=== PATIENT | female | born 1970 | race Hispanic/Latino ===

== ENCOUNTER 2019-03-30 02:45 | Inpatient (IN) | payer BC ==
[2019-03-30] MEDS ORDERED: Piperacillin/Tazobactam 4.5 GM VIAL ONE (03:00)
[2019-03-30] MEDS ORDERED: Sodium Chloride 0.9% 100 ML ONE (03:00)
[2019-03-30] MEDS ORDERED: Morphine 4 MG/ML VIAL ONE (03:15)
[2019-03-30] MEDS ORDERED: Acetaminophen 500 MG TAB ONE (03:15)
[2019-03-30] MEDS ORDERED: Ondansetron PF 4 MG/2 ML Vial ONE ×2 (03:15→10:23)
[2019-03-30 03:24] LABS: BHCG - Serum Negative (NEGATIVE); PTT 28.5 SEC (22.9-36.1); Pregs Control Background? CLEAR/WHITE (CLR/WHITE); Pregs Control Bar Appear? YES (CONTROL BAR); Prothrombin Time 12.8 SEC (12.0-14.7)
[2019-03-30 03:26] LABS: Hemoglobin 14.2 g/dL (12.0-16.0); Mean Corpuscular HGB CONC 34.4 g/dL (32.0-36.0); Mean Corpuscular Volume 87.1 fL (78.0-98.0); Mean Platelet Volume 8.4 fL (7.4-10.4); Platelet Count 177 thou/uL (130-400); RBC Distribution Width 12.6 % (11.5-14.5); Red Blood Cell (RBC) Count 4.73 mill/uL (4.20-5.40); White Blood Cell (WBC) Count 17.4 thou/uL (4.8-10.8)
[2019-03-30 03:38] LABS: Band 9 % (5-11); Eosinophils 1 % (0-10); Lymphocytes 5 % (21-51); MDiff Complete? YES; Metamyelocyte 1 % (0-0); Monocytes 7 % (0-10); Neutrophil 77 % (42-75); Platelet Morphology Comment Appears Adequate
[2019-03-30 03:39] LABS: ALT (SGPT) 351 U/L (8-55); AST (SGOT) 202 U/L (5-34); Albumin 4.2 g/dL (3.5-5.0); Alkaline Phosphatase 346 U/L (40-110); Anion Gap 15 mmol/L (10-20); BUN (Urea Nitrogen) 7 mg/dL (7.0-18.7); Bilirubin, Total 6.1 mg/dL (0.2-1.2); Calc. Creatinine Clearance 0 mL/min (70-130); Calcium 9.1 mg/dL (7.8-10.44); Carbon Dioxide 24 mmol/L (22-29); Chloride 102 mmol/L (98-107); Estimated GFR-MDRD Greater than 90; Globulin 4.4 g/dL (2.4-3.5); Glucose 138 mg/dL (70-105); Lipase 6 U/L (8-78); Potassium 4.3 mmol/L (3.5-5.1); Protein, Total 8.6 g/dL (6.0-8.3); Sodium 137 mmol/L (136-145)
[2019-03-30 04:29] LABS: Bacteria/HPF 1+ HPF (None Seen); Bilirubin Negative (Negative); Blood, Urine 1+ (Negative); Clarity Clear (Clear); Glucose, Urine (Dipstick) Normal (Negative); Leukocyte 250 Leu/uL (Negative); Nitrite Negative (Negative); Protein, Urine (Dipstick) Negative (Neg-Trace); Squamous Epithelial 0-3 HPF (0-3); Urobilinogen Normal mg/dL (Less than 2)
[2019-03-30] MEDS ORDERED: Senokot S 8.6-50 MG TAB PO PRN (07:52)
[2019-03-30] MEDS ORDERED: Sodium Chloride 0.9% 1,000 ML IV SCH (08:00)
[2019-03-30] MEDS ORDERED: Morphine 2 MG/ML SYRINGE SLOW IVP PRN (08:01)
[2019-03-30] MEDS ORDERED: Sodium Chloride 0.9% 10 ML ONE (08:18)
[2019-03-30] MEDS: Heparin 5,000 UNITS/ML VIAL SC SCH ×3 (08:20→21:06)
--- NOTE | 2019-03-30 08:23 | ULT ---
PRELIMINARY REPORT/[facility]/EMERGENCY AFTER HOURS PROCEDURE Receipt of this report by the clinical staff was confirmed with SILVESTRE LEPE MD by Wojciech Barry on Mar 30, 2019 03:56:00 RECREATION COORDINATOR. Addendum electronically signed by Bianca Barry on March 30, 2019 3:57:37 AM RECREATION COORDINATOR EXAM: US Abdomen Limited, Right Upper Quadrant. CLINICAL HISTORY: HX: ABD PAIN, N/V, FEVER, HX OF GALLSTONES. TECHNIQUE: Real-time ultrasound of the right upper quadrant with image documentation. COMPARISON: None provided. FINDINGS: LIVER: Unremarkable. GALLBLADDER: Cholelithiasis is noted with wall thickening at 4.4 mm. No pericholecystic fluid. The p atient demonstrated a positive sonographic Painting's sign COMMON BILE DUCT: Appears dilated at 8.6 mm with suspected distal calculus and intrahepatic biliary d uctal dilatation is identified PANCREAS: Unremarkable as visualized. The distal pancreas is obscured by overlying bowel gas. RIGHT KIDNEY: Unremarkable. No hydronephrosis. Measures 11.8 cm IMPRESSION: The findings are consistent with acute cholecystitis with suspected distal choledocholithiasis ELECTRONICALLY SIGNED BY: Guzman Dill MD Mar 30, 2019 3:53:02 AM RECREATION COORDINATOR FINAL REPORT EMERGENT AFTER HOURS RIGHT UPPER QUADRANT ABDOMINAL ULTRASOUND: FINDINGS/IMPRESSION: I agree with the findings and impression given in the preliminary report per [facility] physici an. 1. There is cholelithiasis with findings suggesting acute cholecystitis. 2. There is enlargement of the common bile duct with a possible stone in the distal common bile duct . POS: [facility]
[2019-03-30] MEDS ORDERED: Loratadine 10 MG TAB PO PRN (08:54)
[2019-03-30] MEDS ORDERED: Sodium Chloride Nasal 15 GM TUBE EA NARE PRN (08:54)
--- NOTE | 2019-03-30 08:55 | PDOC.HHP ---
Hospitalist HPI - History of Present Illness Abdominal pain History of Present Illness: 49 yo female with no PMH presented to ER due to abdominal pain. She had presented to [facility] on 03/27/19 due to abdominal pain and was found to have gall stones. She was sent home. She states that she continued to have abdominal pain. She rates it as 9/10 pain in her right upper abdomen that is a pressure like sensation. The pain radiates to her back. No relation to food intake. Currently, the pain is 3/10 after receiving pain medications. Reports nausea and vomiting 2 days ago. Denies diarrhea, constipation. Reports fevers and chills, lightheadedness with activity. No chest pain, shortness of breath, palpitations, headache, cough, wheezing. No burning or pain with urination. She reports dark urine over the past few days. Denies blood in urine or stool. Denies swelling, rash. No recent travel history or sick contacts. Hospitalist ROS - Review of Systems All other systems reviewed; all pertinent +/- noted in HPI/Subj - Medication Medications: Active Medications Generic Name Dose Route Start Last Admin Trade Name Freq PRN Reason Stop Dose Admin Heparin Sodium (Porcine) 5,000 units 03/30/19 09:00 03/30/19 08:20 Heparin SC 5,000 units TID DEVAN Administration Sodium Chloride 1,000 mls @ 999 mls/hr 03/30/19 08:00 03/30/19 08:11 Normal Saline 0.9% IV 03/30/19 09:00 1,000 mls .Q1H1M DEVAN Administration Hospitalist History - Past Medical History Source: patient, family Cardiac: reports: no pertinent history Pulmonary: reports: no pertinent history Gastrointestinal: reports: no pertinent history Heme/Onc: reports: no pertinent history Hepatobiliary: reports: no pertinent history Psych: reports: no pertinent history Musculoskeletal: reports: no pertinent history Rheumatologic: reports: no pertinent history Infectious Disease: reports: no pertinent history ENT: reports: no pertinent history Renal/: reports: no pertinent history Endocrine: reports: no pertinent history Dermatology: reports: no pertinent history - Past Surgical History Past Surgical History: reports: no pertinent history Other Surgical History: No surgeries - Family History Family History: reports: diabetes mellitus (brother) - Social History Smoking Status: Never smoker Alcohol: reports: None Drugs: reports: none Living Situation: With Family Activity level: independent ambulation - Exam General Appearance: awake alert, ill appearing Eye: PERRL, scleral icterus ENT: normocephalic atraumatic, no oropharyngeal lesions, dry oral mucosa Neck: supple, symmetric, no JVD, no thyromegaly, no lymphadenopathy Heart: no murmur, no gallops, no rubs, normal peripheral pulses Heart - other findings: tachycardia Respiratory: CTAB, no wheezes, no rales, no ronchi, normal chest expansion, no tachypnea Respiratory - other findings: Not using accessory muscles of respiration Gastrointestinal: soft, non-distended, normal bowel sounds, no palpable masses, no guarding, no rigidity, tender to palpation (right upper quadrant) Extremities: no cyanosis, no clubbing, no edema Skin: normal turgor, no lesions, no rashes Neurological: cranial nerve grossly intact, normal sensation to touch, no focal deficits Musculoskeletal: normal tone, normal strength, no muscle wasting Psychiatric: normal affect, normal behavior, A&O x 3 Hospitalist Results - Labs Result Diagrams: 03/30/19 03:01 03/30/19 03:01 Lab results: WBC 17.4 thou/uL (4.8-10.8) H 03/30/19 03:01 Hgb 14.2 g/dL (12.0-16.0) 03/30/19 03:01 Hct 41.2 % (36.0-47.0) 03/30/19 03:01 MCV 87.1 fL (78.0-98.0) 03/30/19 03:01 Plt Count 177 thou/uL (130-400) 03/30/19 03:01 Band Neuts % (Manual) 9 % (5-11) 03/30/19 03:01 Sodium 137 mmol/L (136-145) 03/30/19 03:01 Potassium 4.3 mmol/L (3.5-5.1) 03/30/19 03:01 Chloride 102 mmol/L (98-107) 03/30/19 03:01 Carbon Dioxide 24 mmol/L (22-29) 03/30/19 03:01 BUN 7 mg/dL (7.0-18.7) 03/30/19 03:01 Creatinine 0.68 mg/dL (0.6-1.1) 03/30/19 03:01 Glucose 138 mg/dL (70-105) H 03/30/19 03:01 Lactic Acid 1.1 mmol/L (0.5-2.2) 03/30/19 03:01 Calcium 9.1 mg/dL (7.8-10.44) 03/30/19 03:01 Total Bilirubin 6.1 mg/dL (0.2-1.2) H 03/30/19 03:01 AST 202 U/L (5-34) H 03/30/19 03:01 ALT 351 U/L (8-55) H 03/30/19 03:01 Alkaline Phosphatase 346 U/L (40-110) H 03/30/19 03:01 Serum Total Protein 8.6 g/dL (6.0-8.3) H 03/30/19 03:01 Albumin 4.2 g/dL (3.5-5.0) 03/30/19 03:01 Lipase 6 U/L (8-78) L 03/30/19 03:01 Urine Ketones 10 mg/dL (Negative) A 03/30/19 04:05 Urine Blood 1+ (Negative) A 03/30/19 04:05 Urine Nitrite Negative (Negative) 03/30/19 04:05 Ur Leukocyte Esterase 250 Ann/uL (Negative) A 03/30/19 04:05 Urine RBC 7-10 HPF (0-3) A 03/30/19 04:05 Urine WBC 7-10 HPF (0-3) A 03/30/19 04:05 Ur Squamous Epith Cells 0-3 HPF (0-3) 03/30/19 04:05 Urine Bacteria 1+ HPF (None Seen) A 03/30/19 04:05 - EKG Interpretation EKG: Personally reviewed - Sinus tachycardia; T-inversions in lead III - Radiology Interpretation US - abdomen Status: report reviewed by me (Acute cholecystitis and possible choledocholithiasis) Hospitalist H&P A/P - Problem (1) Cholecystitis Code(s): K81.9 - CHOLECYSTITIS, UNSPECIFIED Status: Acute Assessment and Plan: Admit to inpatient status High risk due to need for IV abx and IVF and need for inpatient surgical intervention Expected to stay at least 2 midnights Case DW surgery who recommended GI consult and ERCP GI consulted Will await further recommendations from GI IV antibiotics with rocephin and IVF Pain control Eventual cholecystectomy (2) Sepsis Code(s): A41.9 - SEPSIS, UNSPECIFIED ORGANISM Status: Acute Qualifiers: Sepsis type: sepsis due to unspecified organism Sepsis acute organ dysfunction status: without acute organ dysfunction Qualified Code(s): A41.9 - Sepsis, unspecified organism Assessment and Plan: Has bandemia with 9% bands, leukocytosis and tachycardia Due to cholecystitis Mgmt. as above IV fluid bolus now and IVF drip (3) Hyperbilirubinemia Code(s): E80.6 - OTHER DISORDERS OF BILIRUBIN METABOLISM Status: Acute Assessment and Plan: Likely due to choledocholithiasis Likely needs ERCP MRCP ordered to evaluate for CBD stone IV fluids Trend bilirubin levels - Plan Plan: CODE STATUS - FULL CODE
--- NOTE | 2019-03-30 09:37 | CON ---
DATE OF CONSULTATION: 03/30/2019 CHIEF COMPLAINT: Possible cholangitis. HISTORY OF PRESENT ILLNESS: This is a 49-year-old female, who presents with a history of pain in the right upper abdomen associated with fever. She presented very tachycardic last night. She notes temperatures up to 101 and 102 at home. She has been afebrile here, seen in emergency department by Dr. Noble where ultrasound reveals evidence of gallstones, dilated common bile duct, likely choledocholithiasis. Her bilirubin was found to be elevated at 6.1. She denies known previous history of gallstones. She has never had jaundice or pancreatitis. MEDICAL HISTORY: Negative. SURGICAL HISTORY: Negative. MEDICATIONS: Medicines taken daily none. ALLERGIES: NO KNOWN DRUG ALLERGIES. SOCIAL HISTORY: No smoking, alcohol, or other drugs. REVIEW OF SYSTEMS: Ten-system review of systems is otherwise negative unless described above. PHYSICAL EXAMINATION: VITAL SIGNS: Pulse is 107 down from 129 last night in the emergency room. Temperature 98.8 down from 101 in the emergency room last night, O2 saturation 94% on room air, blood pressure 125/67. HEENT: Sclerae icteric. Oropharynx clear. NECK: No lymphadenopathy. CHEST: Clear. HEART: Increased rate, regular rhythm without murmur. ABDOMEN: Soft. She is tender in the right upper quadrant. No guarding or rebound. No abdominal or inguinal hernias. EXTREMITIES: No ischemia or edema to extremities. LABORATORY DATA: White blood cell count is 17, hemoglobin 14, platelet count is 177. She has 77 neutrophils and 9 bands. Sodium 137, potassium 4.3, creatinine 0.68, bilirubin 6.1. AST, ALT, alkaline phosphatase are all elevated. Lipase is 66. Ultrasound, common bile duct is dilated at 8.6 mm. She does have gallstones, gallbladder wall thickening. ASSESSMENT: Acute cholecystitis with acute choledocholithiasis plus or minus cholangitis. PLAN: I think she needs ERCP. Gallbladder cholecystectomy can follow within the next 24 to 48 hours. We will discuss with Dr. Sanchez. Based on her clinical presentation, I do not think MRCP is going to be helpful. Job ID: [id number]
[2019-03-30] MEDS: Sodium Chloride 0.9% 1,000 ML IV SCH ×2 (09:50→21:06)
[2019-03-30] MEDS: cefTRIAXone\\ROCEPHIN 2 GM in Sodium Chloride 0.9% 100 ML IVPB SCH (10:09)
[2019-03-30] MEDS ORDERED: PROPOFOL 200 MG/20 ML VIAL ONE (10:23)
[2019-03-30] MEDS ORDERED: Rocuronium Bromide 10 MG/ML (10ML VIAL) ONE (10:23)
[2019-03-30] MEDS ORDERED: Lidocaine 1% PF 5 ML VIAL ONE (10:23)
[2019-03-30] MEDS ORDERED: Dexamethasone 20 MG/5 ML VIAL ONE (10:23)
[2019-03-30] MEDS ORDERED: PHENYLEPHRINE-NS 100 MCG/ML 10 ML SYRINGE ONE (10:23)
[2019-03-30] MEDS ORDERED: Midazolam HCl 2 mg/2 ml Vial ONE (13:14)
[2019-03-30] MEDS ORDERED: Iothalamate Meglumine 60% 50 ML VIAL FS ONE (13:14)
[2019-03-30] MEDS ORDERED: Indomethacin 50 MG SUPP ONE (13:14)
[2019-03-30] MEDS ORDERED: Fentanyl 100 MCG/2 ML VIAL ONE (13:14)
[2019-03-30] MEDS ORDERED: Promethazine HCl 25 MG/ML VIAL SLOW IVP PRN (14:06)
[2019-03-30] MEDS ORDERED: PACU-Morphine 4MG/ML VIAL SLOW IVP PRN (14:06)
[2019-03-30] MEDS ORDERED: Ondansetron HCl/PF 4 MG/2 ML Vial IVP PRN (14:06)
[2019-03-30] MEDS ORDERED: Promethazine HCl 25 MG/ML VIAL IM PRN (14:06)
[2019-03-30] MEDS ORDERED: HYDROmorphone 2 MG/ML VIAL SLOW IVP PRN (14:06)
--- NOTE | 2019-03-30 22:05 | OP ---
DATE OF PROCEDURE: 03/30/2019 OPERATIVE PROCEDURE: Endoscopic retrograde cholangiopancreatography. PREOPERATIVE DIAGNOSES: Abdominal pain, abnormal LFTs and possible choledocholithiasis. POSTOPERATIVE DIAGNOSES: 1. Unable to cannulate the pancreatic duct, unable to cannulate the bile duct. 2. Normal pancreatic duct. 3. Only less than 1.5 mL of contrast injected during this procedure. DESCRIPTION OF PROCEDURE: The patient was placed on her back and was intubated by the Anesthesia Department. The patient was transferred to the fluoroscopy table after she was given sedation. The patient was turned on her left lateral position and then placed on her stomach. A bite block was placed. A [employer] video duodenoscope under direct vision passed down the oropharynx past the GE junction into the stomach and rapidly into the descending duodenum. The papilla was identified. The scope was 60 cm and was straight in line and good ideal position for cannulation. The papilla was cannulated over a guidewire without any difficulty. Upon doing fluoroscopy, it was actually in the pancreatic duct. The papillotome was removed. Numerous attempts were made by changing the position and also trying to rotate the scope. Every time it was easy to cannulate the papillotome over a guidewire. But however every time the guide was advancing, it was going back into the pancreatic duct. 1.5 mL of contrast was injected, which showed normal pancreatic duct. This was repeated several times and I did not inject any more dye except the fluoroscopy was used also to guide the direction of the papillotome. Following numerous attempts and also trying to use tapered tip cannula, I could not really cannulate the common bile duct. The procedure was terminated. The stomach decompressed and the scope removed. RECOMMENDATIONS: 1. Clear liquid diet. 2. Follow up LFTs. 3. May need to consider repeat ERCP. Job ID: [id number]
[2019-03-31] MEDS: Sodium Chloride 0.9% 1,000 ML IV SCH (04:59)
[2019-03-31 06:27] LABS: #Basophils 0.1 thou/uL (0.0-0.2); #Lymphocytes 1.1 thou/uL (1.20-3.40); #Monocytes 0.6 thou/uL (0.11-0.59); #Neutrophils 7.3 thou/uL (1.40-6.50); %Basophils 0.6 % (0.0-1.0); %Eosinophils 0.1 % (0.0-10.0); %Monocytes 6.1 % (0.0-10.0); %Neutrophils 81.2 % (42.0-75.0); Hemoglobin 12.2 g/dL (12.0-16.0); Mean Corpuscular HGB CONC 34.2 g/dL (32.0-36.0); Mean Corpuscular Hemoglobin 30.1 pg (27.0-31.0); Mean Corpuscular Volume 87.9 fL (78.0-98.0); Mean Platelet Volume 8.4 fL (7.4-10.4); Platelet Count 140 thou/uL (130-400); RBC Distribution Width 12.5 % (11.5-14.5); Red Blood Cell (RBC) Count 4.07 mill/uL (4.20-5.40)
[2019-03-31 06:47] LABS: ALT (SGPT) 230 U/L (8-55); AST (SGOT) 92 U/L (5-34); Albumin 3.2 g/dL (3.5-5.0); Alkaline Phosphatase 262 U/L (40-110); Anion Gap 12 mmol/L (10-20); BUN (Urea Nitrogen) 7 mg/dL (7.0-18.7); Calc. Creatinine Clearance 154 mL/min (70-130); Calcium 8.1 mg/dL (7.8-10.44); Carbon Dioxide 22 mmol/L (22-29); Chloride 110 mmol/L (98-107); Estimated GFR-MDRD Greater than 90; Globulin 3.5 g/dL (2.4-3.5); Glucose 134 mg/dL (70-105); Potassium 3.7 mmol/L (3.5-5.1); Protein, Total 6.7 g/dL (6.0-8.3); Sodium 140 mmol/L (136-145)
[2019-03-31 06:48] LABS: ALT (SGPT) 231 U/L (8-55); AST (SGOT) 92 U/L (5-34); Albumin 3.3 g/dL (3.5-5.0); Alkaline Phosphatase 263 U/L (40-110); Bilirubin, Direct 3.3 mg/dL (0.1-0.3); Protein, Total 6.6 g/dL (6.0-8.3)
[2019-03-31 07:00] LABS: Lipase 2035 U/L (8-78)
[2019-03-31] MEDS: cefTRIAXone\\ROCEPHIN 2 GM in Sodium Chloride 0.9% 100 ML IVPB SCH (08:37)
[2019-03-31] MEDS: Heparin 5,000 UNITS/ML VIAL SC SCH ×3 (08:37→22:04)
[2019-03-31] MEDS: 1/2 NS w/KCL 20 mEq 1,000 ML IV SCH ×4 (08:38→22:04)
--- NOTE | 2019-03-31 10:09 | PRG ---
DATE OF SERVICE: 03/31/2019 SUBJECTIVE: This is a 49-year-old female hospitalized yesterday morning with abdominal pain, nausea with fever to 102 and also abnormal LFTs. The clinical picture was suggestive of possible cholangitis. She has gallstone in the gallbladder and also has a dilated CBD. She underwent ERCP yesterday, but unfortunately the common bile duct could not be cannulated. She had done well overnight. She has very minimal abdominal discomfort. No nausea. No vomiting. She remains afebrile. She offers no complaints. OBJECTIVE: VITAL SIGNS: Afebrile, pulse is 84, and blood pressure 124/63. HEENT: She is icteric. CARDIOVASCULAR SYSTEM: Within normal limits. LUNGS: Within normal limits. ABDOMEN: Soft. She is very mildly tender over the right upper quadrant. Overall, the exam is very benign. LABORATORY DATA: Remained unchanged, especially liver function tests. The bilirubin is 4, AST 92, ALT 231, and alkaline phosphatase 263. Lytes are normal. , probably asymptomatic elevation. RECOMMENDATIONS: 1. Advance diet to full liquid diet. 2. Repeat ERCP tomorrow. The patient's family was informed of the plan of treatment, which includes a repeat ERCP tomorrow and possibly laparoscopic cholecystectomy at a later today. Job ID: [id number]
[2019-03-31] MEDS: Acetaminophen 325 MG TAB PO PRN ×3 (13:29→23:03)
--- NOTE | 2019-03-31 13:43 | PDOC.HOSPP ---
- Subjective Encounter Date: 03/31/19 Encounter Time: 13:42 Subjective: ERCP yesterday was unsuccessful. Patient reports feeling better today with an abdominal pain of 3/10 in the right upper abdomen. No N/V. No fever, chills, SOB , CP. - Objective Vital Signs & Weight: Vital Signs (12 hours) Temp Pulse Resp BP Pulse Ox 03/31/19 11:40 97.9 F 85 12 126/61 96 03/31/19 08:01 98.5 F 84 12 124/65 93 L 03/31/19 04:00 97.9 F 81 18 115/67 95 03/31/19 03:50 95 Weight Weight 175 lb 15.92 oz I&O: 03/30/19 03/31/19 04/01/19 06:59 06:59 06:59 Intake Total 2980 Balance 2980 Result Diagrams: 03/31/19 06:15 03/31/19 06:15 Hospitalist ROS - Medication Medications: Active Medications Generic Name Dose Route Start Last Admin Trade Name Freq PRN Reason Stop Dose Admin Acetaminophen 650 mg 03/30/19 07:52 03/31/19 13:29 Tylenol PO 650 mg Q4H PRN Administration Headache/Fever/Mild Pain (1-3) Heparin Sodium (Porcine) 5,000 units 03/30/19 09:00 03/31/19 08:37 Heparin SC 5,000 units TID DEVAN Administration Ceftriaxone Sodium 2 gm/ 100 mls @ 200 mls/hr 03/30/19 08:00 03/31/19 08:37 Sodium Chloride IVPB 100 mls Q24HR DEVAN Administration Potassium Chloride/Sodium Chloride 1,000 mls @ 100 mls/hr 03/31/19 08:30 12:01 1/2 Ns W/Kcl 20 Meq IV 1,000 mls .Q10H DEVAN Administration Loratadine 10 mg 03/30/19 08:54 03/30/19 10:09 Claritin PO 10 mg DAILYPRN PRN Administration Allergies - Exam General Appearance: awake alert, ill appearing Eye: PERRL, scleral icterus ENT: normocephalic atraumatic, no oropharyngeal lesions, moist mucosa Neck: supple, symmetric, no thyromegaly, no lymphadenopathy Heart: RRR, no murmur, no gallops, no rubs, normal peripheral pulses Respiratory: CTAB, no wheezes, no rales, no ronchi, normal chest expansion, no tachypnea Gastrointestinal: soft, non-distended, normal bowel sounds, no guarding, no rigidity, tender to palpation (RUQ) Hosp A/P (1) Choledocholithiasis with acute cholecystitis with obstruction Code(s): K80.43 - CALCULUS OF BILE DUCT W ACUTE CHOLECYSTITIS WITH OBSTRUCTION Status: Acute (2) Sepsis Code(s): A41.9 - SEPSIS, UNSPECIFIED ORGANISM Status: Acute Qualifiers: Sepsis type: sepsis due to unspecified organism Sepsis acute organ dysfunction status: without acute organ dysfunction Qualified Code(s): A41.9 - Sepsis, unspecified organism (3) Hyperbilirubinemia Code(s): E80.6 - OTHER DISORDERS OF BILIRUBIN METABOLISM Status: Acute - Plan DVT proph w/[facility] Hospitalist A/P - Problem (1) Choledocholithiasis with Acute Cholecystitis with obstruction Code(s): K81.9 - CHOLECYSTITIS, UNSPECIFIED Status: Acute Assessment and Plan: Case DW surgery and GI ERCP unsuccessfull yesterday Repeat ERCP tomorrow Full liquid diet today Continue IV antibiotics with rocephin and IVF Pain control Eventual cholecystectomy by surgery after resolution of CBD obstruction (2) Sepsis Code(s): A41.9 - SEPSIS, UNSPECIFIED ORGANISM Status: Acute Qualifiers: Sepsis type: sepsis due to unspecified organism Sepsis acute organ dysfunction status: without acute organ dysfunction Qualified Code(s): A41.9 - Sepsis, unspecified organism Assessment and Plan: Related to #1 Improving
[2019-03-31] MEDS: Ondansetron PF 4 MG/2 ML Vial IVP PRN (16:14)
[2019-04-01] MEDS ORDERED: Sodium Chloride 0.9% 10 ML ONE (00:14)
[2019-04-01] MEDS: Ketorolac Tromethamine 30 MG/ML VIAL IVP PRN ×2 (00:19→06:18)
[2019-04-01] MEDS: Acetaminophen 325 MG TAB PO PRN (04:57)
[2019-04-01] MEDS: Ondansetron PF 4 MG/2 ML Vial IVP PRN (05:16)
[2019-04-01 06:12] LABS: #Basophils 0.1 thou/uL (0.0-0.2); #Eosinphils 0.1 thou/uL (0.0-0.7); #Lymphocytes 1.7 thou/uL (1.20-3.40); #Monocytes 0.8 thou/uL (0.11-0.59); #Neutrophils 8.5 thou/uL (1.40-6.50); %Basophils 0.7 % (0.0-1.0); %Eosinophils 1.1 % (0.0-10.0); %Lymphocytes 15.2 % (21.0-51.0); %Monocytes 6.7 % (0.0-10.0); %Neutrophils 76.2 % (42.0-75.0); Hemoglobin 12.1 g/dL (12.0-16.0); Mean Corpuscular HGB CONC 33.9 g/dL (32.0-36.0); Mean Corpuscular Hemoglobin 29.7 pg (27.0-31.0); Mean Corpuscular Volume 87.9 fL (78.0-98.0); Mean Platelet Volume 8.2 fL (7.4-10.4); Platelet Count 154 thou/uL (130-400); RBC Distribution Width 12.8 % (11.5-14.5); Red Blood Cell (RBC) Count 4.06 mill/uL (4.20-5.40); White Blood Cell (WBC) Count 11.2 thou/uL (4.8-10.8)
[2019-04-01 06:33] LABS: ALT (SGPT) 210 U/L (8-55); ALT (SGPT) 213 U/L (8-55); AST (SGOT) 73 U/L (5-34); AST (SGOT) 74 U/L (5-34); Albumin 3.3 g/dL (3.5-5.0); Albumin 3.4 g/dL (3.5-5.0); Alkaline Phosphatase 285 U/L (40-110); Alkaline Phosphatase 291 U/L (40-110); Anion Gap 12 mmol/L (10-20); BUN (Urea Nitrogen) 4 mg/dL (7.0-18.7); Bilirubin, Total 4.8 mg/dL (0.2-1.2); Calc. Creatinine Clearance 169 mL/min (70-130); Calcium 8.3 mg/dL (7.8-10.44); Carbon Dioxide 21 mmol/L (22-29); Chloride 108 mmol/L (98-107); Estimated GFR-MDRD Greater than 90; Globulin 3.6 g/dL (2.4-3.5); Glucose 110 mg/dL (70-105); Lipase 475 U/L (8-78); Potassium 3.7 mmol/L (3.5-5.1); Protein, Total 6.9 g/dL (6.0-8.3); Sodium 137 mmol/L (136-145)
[2019-04-01] MEDS ORDERED: Ketorolac Tromethamine 30 MG/ML VIAL IVP PRN (06:37)
[2019-04-01] MEDS ORDERED: Acetaminophen 1,000 MG in Premix Bag 1 BAG IVPB PRN (06:38)
--- NOTE | 2019-04-01 07:52 | PDOC.HOSPP ---
- Subjective Encounter Date: 04/01/19 Encounter Time: 07:49 Subjective: planned surgery today - Objective Vital Signs & Weight: Vital Signs (12 hours) Temp Pulse Resp BP Pulse Ox 04/01/19 04:00 98.0 F 90 18 116/56 L 98 04/01/19 00:00 97.8 F 82 18 129/72 97 03/31/19 20:00 97 03/31/19 19:53 98.0 F 79 18 130/70 97 Weight Weight 175 lb 15.92 oz I&O: 03/31/19 04/01/19 04/02/19 06:59 06:59 06:59 Intake Total 2980 3000 Balance 2980 3000 Result Diagrams: 04/01/19 05:55 04/01/19 05:55 Hospitalist ROS - Medication Medications: Active Medications Generic Name Dose Route Start Last Admin Trade Name Freq PRN Reason Stop Dose Admin Heparin Sodium (Porcine) 5,000 units 03/30/19 09:00 03/31/19 22:04 Heparin SC 5,000 units TID DEVAN Administration Ceftriaxone Sodium 2 gm/ 100 mls @ 200 mls/hr 03/30/19 08:00 03/31/19 08:37 Sodium Chloride IVPB 100 mls Q24HR DEVAN Administration Potassium Chloride/Sodium Chloride 1,000 mls @ 100 mls/hr 03/31/19 08:30 22:04 1/2 Ns W/Kcl 20 Meq IV 1,000 mls .Q10H DEVAN Administration Loratadine 10 mg 03/30/19 08:54 03/30/19 10:09 Claritin PO 10 mg DAILYPRN PRN Administration Allergies Ondansetron HCl 4 mg 03/30/19 07:52 04/01/19 05:16 Zofran IVP 4 mg Q6H PRN Administration Nausea/Vomiting - Exam General Appearance: awake alert Neck: no JVD Heart: RRR, no murmur Respiratory: CTAB Gastrointestinal: soft, normal bowel sounds Gastrointestinal - other findings: tender RUQ Extremities: no edema Hosp A/P (1) Cholangitis due to bile duct calculus with obstruction Code(s): K80.31 - CALCULUS OF BILE DUCT W CHOLANGITIS, UNSP, WITH OBSTRUCTION Status: Acute - Plan DUGERY TODAY CONT IV ANTIBX CONT ms FOR PAIN
[2019-04-01] MEDS ORDERED: Iothalamate Meglumine 60% 50 ML VIAL FS ONE (08:27)
[2019-04-01] MEDS ORDERED: Indomethacin 50 MG SUPP ONE (08:27)
[2019-04-01] MEDS: Heparin 5,000 UNITS/ML VIAL SC SCH ×2 (08:45→15:07)
[2019-04-01] MEDS: cefTRIAXone\\ROCEPHIN 2 GM in Sodium Chloride 0.9% 100 ML IVPB SCH (08:45)
[2019-04-01] MEDS ORDERED: Famotidine/PF 20 mg/2ml Vial ONE (09:01)
[2019-04-01] MEDS ORDERED: Fentanyl 100 MCG/2 ML VIAL ONE (09:01)
[2019-04-01] MEDS ORDERED: Rocuronium Bromide 10 MG/ML (10ML VIAL) ONE (09:59)
[2019-04-01] MEDS ORDERED: PHENYLEPHRINE-NS 100 MCG/ML 10 ML SYRINGE ONE (09:59)
[2019-04-01] MEDS ORDERED: Lidocaine 1% PF 5 ML VIAL ONE (09:59)
[2019-04-01] MEDS ORDERED: Metoclopramide HCl 10 MG/2 ML VIAL ONE (09:59)
[2019-04-01] MEDS ORDERED: Ondansetron PF 4 MG/2 ML Vial ONE (09:59)
[2019-04-01] MEDS ORDERED: Glycopyrrolate 0.2 MG/ML 5 ML SYRINGE ONE (09:59)
[2019-04-01] MEDS ORDERED: PROPOFOL 200 MG/20 ML VIAL ONE (09:59)
[2019-04-01] MEDS ORDERED: Dexamethasone 20 MG/5 ML VIAL ONE (09:59)
[2019-04-01] MEDS ORDERED: Meperidine HCl/PF 25 MG/ML VIAL SLOW IVP PRN (10:13)
[2019-04-01] MEDS ORDERED: Promethazine HCl 25 MG/ML VIAL IM PRN (10:13)
[2019-04-01] MEDS ORDERED: Ondansetron HCl/PF 4 MG/2 ML Vial IVP PRN (10:13)
[2019-04-01] MEDS ORDERED: Promethazine HCl 25 MG/ML VIAL SLOW IVP PRN (10:13)
--- NOTE | 2019-04-01 10:49 | RAD ---
EXAM: ERCP HISTORY: Cholelithiasis COMPARISON: None FINDINGS: Limited intraoperative fluoroscopic views were taken during a an ERCP. A minimal amount of contrast is seen within a duct that courses to the left of the midline and may re present the pancreatic duct. No obvious contrast is seen in the common bile duct. IMPRESSION: Likely cannulation of the pancreatic duct.
--- NOTE | 2019-04-01 12:07 | OP ---
DATE OF PROCEDURE: 04/01/2019 INDICATIONS FOR PROCEDURE: Choledocholithiasis, gallstone pancreatitis. PROCEDURE PERFORMED: Endoscopic retrograde cholangiopancreatography with unsuccessful cannulation of the common bile duct. DESCRIPTION OF PROCEDURE: After the risks and benefits of the procedure were explained to the patient, including risks of bleeding, infection, perforation, reactions to anesthesia, aspiration, post-ERCP pancreatitis, and/or pain, informed consent was obtained. The patient was then taken to the endoscopy suite, where general anesthesia was administered with endotracheal tube intubation via Anesthesia support. Once the patient was intubated and sedated, she was maneuvered into the prone position in anticipation for the ERCP. Once in adequate position, 100 mg of indomethacin was administered rectally for prevention of post-ERCP pancreatitis. This was then followed by introduction of the standard duodenoscope with intubation of the esophagus, stomach, and the proximal small intestines with the findings listed below. The patient tolerated the procedure well with no immediate perioperative complications. Upon conclusion of the procedure, all equipment was removed from the patient and she was transferred to PACU in satisfactory condition. FINDINGS: EGD findings: Limited views were obtained of the esophagus, stomach, and the proximal small intestines via the EGD of the mucosal visualized, normal-appearing mucosa was seen in both the esophagus and the stomach. However, multiple superficial ulcerations were seen within the duodenal bulb, which did not extend into the 2nd or 3rd portion of the duodenum. The ampulla was easily identified and did have a very bulbous appearance to it, but was not draining any bilious fluid from the ampulla itself. Otherwise, there was no evidence of mass, lesions or active/recent bleeding. ERCP findings: The ampulla was successfully identified within the 2nd portion of the duodenum and did have a very bulbous type appearance to it. Attempts to the ampulla were successfully cannulated using a 5-mm sphincterotome; however, multiple attempts to place a guidewire within the common bile duct were unsuccessful. On multiple occasions, the guidewire was placed within the pancreatic duct as noted as the guidewire crossed midline. However, it did also exhibit movement of the guidewire further down within the pancreatic duct, which also did cross midline, concerning for either an incomplete pancreatic divisum or a side-branch of the pancreatic duct. Upon manipulation of the sphincterotome, there was some increased resistance toward the common bile duct, but again, the guidewire was not able to be placed successfully within the common bile duct itself. Using an exchange technique, the guidewire was then left within the pancreatic duct with the sphincterotome removed. The sphincterotome was then advanced next to this guidewire in the hopes of successfully and preferentially cannulating the common bile duct, but this was also unsuccessful given the unsuccessful attempts at cannulating the common bile duct, all equipment was then removed from the patient and the procedure was prematurely aborted. IMPRESSION: 1. Unsuccessful cannulation of the common bile duct with suspicion for an impacted gallstone within the distal common bile duct. 2. Multiple superficial ulcerations within the duodenal bulb, consistent with acute pancreatitis. RECOMMENDATIONS: 1. Would recommend transfer of the patient to a tertiary care center in [place] for further evaluation and repeat ERCP. 2. Would continue broad-spectrum antibiotics and IV fluids. 3. Pain control per primary team. 4. We will place the patient on a clear liquid diet until transfer. We will continue to follow. Please call with any questions. Job ID: [id number]
[2019-04-01] MEDS: 1/2 NS w/KCL 20 mEq 1,000 ML IV SCH (15:07)
[2019-04-01 16:17] VITALS: BP 131/67; TEMP 98.8
[2019-04-02] MEDS ORDERED: Acetaminophen 325 MG TAB PO PRN (06:40)
--- NOTE | 2019-04-02 10:32 | DIS ---
DATE OF ADMISSION: 03/30/2019 DATE OF DISCHARGE: 04/01/2019 PRIMARY CARE PHYSICIAN: No PCP. Transferred to [facility] under the care of Dr. Roman. FINAL DIAGNOSES: Choledocholithiasis with obstruction, cholangitis, obstructive jaundice. DISCHARGE MEDICINES: 1. Ceftriaxone 2 g IV piggyback q.24 hours. 2. Heparin 5000 units subq t.i.d. 3. Acetaminophen IV 1000 mg IV piggyback q.6 hours. ALLERGIES: NONE. DIET: N.p.o. HOSPITAL COURSE: [facility] The patient diagnosed with choledocholithiasis with obstructive jaundice, possible cholangitis. Dr. Nathanael Barroso, general surgery was consulted, Dr. Ginger Pisano was consulted on 03/30. Dr. Pisano performed ERCP. Unable to cannulate pancreatic duct, unable to cannulate bile duct. The patient's initial bilirubin was 6.0, is 4.0, 04/01 5.0. Today, Dr. Vazquez Peñaloza attempted ERCP, unable to cannulate common bile duct. He recommended transfer to a tertiary center. Arrangements are made. The patient is being transferred at this time to [facility] in [place] under the care of Dr. Roman for further care. LABORATORY DATA: Abdominal ultrasound, acute cholecystitis with suspected choledocholithiasis. CBC: White count 17.4 on admission, hemoglobin 14.2, platelet count 172,000. Comprehensive metabolic profile normal. AST/ALT 202/352, alkaline phosphatase 346. FOLLOWUP: Per [facility] after final care. Job ID: [id number] [facility]
== END 2019-04-01 18:58 | disposition short-term general hospital (02) | DRG 871 ==
LOC: ERS 02:45 → 3SE 07:41
PROVIDERS: ADMIT Family Medicine; ATTEND Emergency Medicine
PROC: 0FJB8ZZ Inspection of Hepatobiliary Duct, Via Natural or Artificial Opening Endoscopic (ICD-10-PCS; principal; 2019-03-30)
PROC: 0FJD8ZZ Inspection of Pancreatic Duct, Via Natural or Artificial Opening Endoscopic (ICD-10-PCS; 2019-03-30)
PROC: 0FJD8ZZ Inspection of Pancreatic Duct, Via Natural or Artificial Opening Endoscopic (ICD-10-PCS; 2019-04-01)
PROC: BF141ZZ Fluoroscopy of Gallbladder, Bile Ducts and Pancreatic Ducts using Low Osmolar Contrast (ICD-10-PCS; 2019-04-01)
DX: A41.9 Sepsis, unspecified organism (principal); K85.10 Biliary acute pancreatitis without necrosis or infection; K80.43 Calculus of bile duct with acute cholecystitis with obstruction; K80.31 Calculus of bile duct with cholangitis, unspecified, with obstruction; Z79.899 Other long term (current) drug therapy; E80.6 Other disorders of bilirubin metabolism; K26.9 Duodenal ulcer, unspecified as acute or chronic, without hemorrhage or perforation
CPT/HCPCS: 36415; 74330; 76000; 76705; 80053; 81003; 81015; 82150; 82248; 83605; 83690; 84703; 85025; 85610; 85730; 93005; 96361; 96365; 96374; 96375; J0696; J1100; J1610; J1644; J1885; J2001; J2250; J2270; J2405; J2543; J2704; J2765; J3010; J3480; J3490; S0028

== ENCOUNTER 2023-06-22 12:36 | Outpatient (CLI) | payer BC | END 2023-06-22 12:37 | disposition home or self-care (01) | LOC: BICMAMMO 12:36 | PROVIDERS: ATTEND Student in an Organized Health Care Education/Training Program | DX: Z12.31 Encounter for screening mammogram for malignant neoplasm of breast (principal) | CPT/HCPCS: 77063; 77067 ==

== ENCOUNTER 2025-03-21 10:14 | Outpatient (CLI) | payer BC | END 2025-03-21 10:15 | disposition home or self-care (01) | LOC: BICMAMMO 10:14 | PROVIDERS: ATTEND Family Medicine | DX: Z12.31 Encounter for screening mammogram for malignant neoplasm of breast (principal) | CPT/HCPCS: 77063; 77067 ==